=== PATIENT | male | born 1945 | race Two or more races ===

== ENCOUNTER 2018-01-04 11:07 | Inpatient (IN) | payer OTHER, MEDICAID ==
[~2018-01-04] VITALS: Ht 172.7 cm; Wt 75.5 kg
[~2018-01-04 11:07] MED LIST: ASPI-231 PO; ATOR10TA52 PO; CLOP75TA41 PO; Glipizide PO; HYDR25TA4 PO; LISI40TA PO; MET5XLT PO; METF-372 PO
[2018-01-04] MEDS ORDERED: ASPirin 81 mg TAB PO ONE (11:45)
[2018-01-04] MEDS ORDERED: NITROGLYCERIN 0.4 MG SL TAB SL ONE (11:45)
[2018-01-04 12:02] LABS: Basophils # (auto) 0 uL; Eosinophils # (auto) 0.1 uL; Eosinophils % (auto) 0.7 % (0.0-7.0); Hemoglobin 14.3 g/dL (13.5-17.5); Lymphocytes # (auto) 1.1 uL; Monocytes # (auto) 0.8 uL
[2018-01-04 12:06] LABS: Basophils % (auto) 0.4 % (0.0-2.0); Hematocrit 40.2 % (41.0-53.0); Lymphocytes % (auto) 14.6 % (10.0-50.0); Mean Corpuscular Hemoglobin 37.2 pg (28.0-32.0); Mean Corpuscular Hgb Conc. 35.5 g/dL (32.0-36.0); Mean Corpuscular Volume 104.6 fL (80.0-100.0); Monocytes % (auto) 9.8 % (0.0-12.0); Neutrophils # (auto) 5.7 uL; Neutrophils % (auto) 74.5 % (37.0-80.0); Platelet Count (auto) 204 10^3/uL (140-450); Red Blood Cells 3.84 10^6/uL (4.5-5.90); Red Cell Distribution Width 12.9 % (11.8-14.3); White Blood Cell 7.7 10^3/uL (4.4-10.8)
[2018-01-04 12:30] LABS: Albumin 3.8 g/dL (3.4-5.0); BUN/Creatinine Ratio 15.5; Calcium 8.4 mg/dL (8.5-10.1); Potassium 3.9 mmol/L (3.5-5.1)
[2018-01-04 12:35] LABS: Bilirubin, Total 0.6 mg/dL (0.2-1.0); Total Protein 7.9 g/dL (6.4-8.2)
[2018-01-04] MEDS ORDERED: IOHEXOL 350 MG/ML 100ML IJ ONE (13:20)
[2018-01-04] MEDS ORDERED: MORPHINE SULFATE 4 MG/ML SYR/VIAL IV PRN ×2 (16:30)
[2018-01-04] MEDS ORDERED: LORazepam 0.5 MG TAB PO PRN (16:30)
[2018-01-04] MEDS ORDERED: ACETAMINOPHEN 500 MG TAB PO PRN (16:30)
[2018-01-04] MEDS ORDERED: NITROGLYCERIN 0.4 MG SL TAB SL PRN (16:30)
[2018-01-04] MEDS ORDERED: SODIUM CHLORIDE 0.9% 2,000 ML IV ONE (16:30)
[2018-01-04] MEDS ORDERED: DEXTROSE (50%) 50ML SYRG IV PRN (16:30)
[2018-01-04] MEDS ORDERED: HEPARIN SODIUM (PORCINE) 5000 UNITS/ML 1ML VIAL IV ONE (16:30)
[2018-01-04] MEDS ORDERED: PROMETHAZINE HCL 25 MG/ML 1ML IV PRN (16:30)
[2018-01-04] MEDS ORDERED: TEMAZEPAM 15 MG CAP PO PRN (16:30)
[2018-01-04] MEDS ORDERED: SODIUM CHLORIDE 0.9% 1,000 ML IV ONE (16:45)
[2018-01-04] MEDS ORDERED: HEPARIN DRIP/D5W 100UNITS/ML 250 ML IV SCH (17:00)
[2018-01-04] MEDS: InsuLIN REG 1unit/0.01ml Soln (100units/ml) SC SCH ×2 (17:32→21:29)
[2018-01-04] MEDS: ACCU-CHEK COMFORT CURVE STRIP VI SCH ×2 (17:32→21:30)
[2018-01-04] MEDS: glipiZIDE 5 MG TAB PO SCH (17:32)
[2018-01-04 18:53] LABS: INR 1.07 (0.9-1.15)
[2018-01-04 19:18] LABS: Partial Thromboplastin Time > 170.00 sec (23.78-33.04)
[2018-01-04 20:00] VITALS: BP 144/77
[2018-01-04] MEDS: ATORVASTATIN 20 MG TAB PO SCH (21:29)
[2018-01-04] MEDS: LISINOPRIL 20 MG TAB PO SCH (21:29)
[2018-01-04 21:37] VITALS: BP 162/86
[2018-01-05 03:16] LABS: Basophils # (auto) 0.1 uL; Eosinophils # (auto) 0.2 uL; Eosinophils % (auto) 2.5 % (0.0-7.0); Hematocrit 39.4 % (41.0-53.0); Hemoglobin 13.6 g/dL (13.5-17.5); Mean Corpuscular Hgb Conc. 34.5 g/dL (32.0-36.0); Mean Corpuscular Volume 104.4 fL (80.0-100.0); Nucleated Red Blood Cells % 0.1 %; Red Blood Cells 3.77 10^6/uL (4.5-5.90)
[2018-01-05 03:17] LABS: Basophils % (auto) 0.8 % (0.0-2.0); Lymphocytes # (auto) 2.1 uL; Lymphocytes % (auto) 30.6 % (10.0-50.0); Monocytes % (auto) 14.2 % (0.0-12.0); Neutrophils # (auto) 3.6 uL; Neutrophils % (auto) 51.9 % (37.0-80.0); Platelet Count (auto) 202 10^3/uL (140-450); Red Cell Distribution Width 12.8 % (11.8-14.3); White Blood Cell 6.9 10^3/uL (4.4-10.8)
[2018-01-05 03:35] LABS: Partial Thromboplastin Time 38.5 sec (23.78-33.04); Prothrombin Time 10.7 sec (9.27-12.13)
[2018-01-05 05:17] VITALS: BP 134/77
[2018-01-05] MEDS: glipiZIDE 5 MG TAB PO SCH ×2 (06:11→18:00)
[2018-01-05] MEDS: ACCU-CHEK COMFORT CURVE STRIP VI SCH ×4 (06:11→21:48)
[2018-01-05] MEDS: InsuLIN REG 1unit/0.01ml Soln (100units/ml) SC SCH ×4 (06:11→21:48)
[2018-01-05 08:00] VITALS: BP 147/78
[2018-01-05] MEDS ORDERED: HEPARIN DRIP/D5W 100UNITS/ML 250 ML IV SCH ×2 (10:00→18:30)
[2018-01-05] MEDS: ASPirin-EC 81 mg tab PO SCH (10:29)
[2018-01-05] MEDS: PANTOPRAZOLE 40 MG TAB PO SCH (10:29)
[2018-01-05] MEDS: CLOPIDOGREL BISULFATE 75 MG TAB PO SCH (10:29)
[2018-01-05] MEDS: LISINOPRIL 20 MG TAB PO SCH ×2 (10:30→21:41)
[2018-01-05] MEDS: METOPROLOL SUCCINATE XL 50 MG TAB PO SCH (10:31)
[2018-01-05] MEDS: HCTZ 25 MG TAB PO SCH (10:31)
[2018-01-05 12:00] VITALS: BP 154/83
[2018-01-05] MEDS ORDERED: LIDOCAINE 2%HCL (LOCAL ANESTH.) INJ 10ml MDV ONE (13:17)
[2018-01-05] MEDS ORDERED: IODIXANOL 320MG/ML 100ML BTL IV ONE (13:17)
[2018-01-05] MEDS ORDERED: fentaNYL CITRATE 100 MCG/2 ML VL ONE (14:05)
[2018-01-05] MEDS ORDERED: MIDAZOLAM HCL 1MG/1ML-2 ML VIAL ONE (14:05)
[2018-01-05] MEDS ORDERED: ANGIOMAX 250 MG VIAL IV ONE (14:05)
[2018-01-05] MEDS ORDERED: SODIUM CHL 0.9% 0 ML ONE (14:05)
[2018-01-05] MEDS ORDERED: EPTIFIBATIDE INJ (2MG/ML) 10ML VIAL IV ONE (15:13)
[2018-01-05] MEDS ORDERED: TICAGRELOR 90 MG TAB ONE (15:28)
[2018-01-05 16:30] VITALS: BP 162/81
[2018-01-05 17:00] LABS: INR 1.01 (0.9-1.15); Prothrombin Time 10.8 sec (9.27-12.13)
[2018-01-05 17:08] LABS: Partial Thromboplastin Time 116.9 sec (23.78-33.04)
[2018-01-05 21:34] VITALS: BP 146/94
[2018-01-05] MEDS: ATORVASTATIN 20 MG TAB PO SCH (21:49)
[2018-01-06 02:35] LABS: Prothrombin Time 10.7 sec (9.27-12.13)
[2018-01-06] MEDS: HYDROcodone-ACET 5/325MG TAB PO PRN ×2 (04:50→11:13)
[2018-01-06 05:24] VITALS: BP 156/98
[2018-01-06 05:55] LABS: Eosinophils # (auto) 0.1 uL; Hemoglobin 14.2 g/dL (13.5-17.5)
[2018-01-06] MEDS: glipiZIDE 5 MG TAB PO SCH (05:59)
[2018-01-06 06:00] LABS: Basophils # (auto) 0.1 uL; Basophils % (auto) 0.7 % (0.0-2.0); Eosinophils % (auto) 1.4 % (0.0-7.0); Hematocrit 40.3 % (41.0-53.0); Lymphocytes # (auto) 1.3 uL; Lymphocytes % (auto) 14.6 % (10.0-50.0); Mean Corpuscular Hemoglobin 36.8 pg (28.0-32.0); Mean Corpuscular Hgb Conc. 35.2 g/dL (32.0-36.0); Mean Corpuscular Volume 104.4 fL (80.0-100.0); Monocytes # (auto) 1.1 uL; Monocytes % (auto) 12.7 % (0.0-12.0); Neutrophils # (auto) 6.3 uL; Neutrophils % (auto) 70.6 % (37.0-80.0); Platelet Count (auto) 200 10^3/uL (140-450); Red Blood Cells 3.86 10^6/uL (4.5-5.90); Red Cell Distribution Width 13.1 % (11.8-14.3); White Blood Cell 8.9 10^3/uL (4.4-10.8)
[2018-01-06] MEDS: InsuLIN REG 1unit/0.01ml Soln (100units/ml) SC SCH ×2 (06:39→11:20)
[2018-01-06] MEDS: ACCU-CHEK COMFORT CURVE STRIP VI SCH ×2 (06:39→11:21)
[2018-01-06 09:00] VITALS: BP 153/84
[2018-01-06 09:00] LABS: INR 0.99 (0.9-1.15); Partial Thromboplastin Time 27.1 sec (23.78-33.04); Prothrombin Time 10.6 sec (9.27-12.13)
[2018-01-06] MEDS ORDERED: CLOP75TA41 PO (09:40)
[2018-01-06] MEDS ORDERED: TICAGRELOR 90 MG TAB PO SCH (10:00)
[2018-01-06] MEDS: HCTZ 25 MG TAB PO SCH (10:38)
[2018-01-06] MEDS: PANTOPRAZOLE 40 MG TAB PO SCH (10:38)
[2018-01-06] MEDS: METOPROLOL SUCCINATE XL 50 MG TAB PO SCH (10:39)
[2018-01-06] MEDS: LISINOPRIL 20 MG TAB PO SCH (10:39)
[2018-01-06] MEDS: CLOPIDOGREL BISULFATE 75 MG TAB PO SCH (11:13)
[2018-01-06] MEDS: ASPirin-EC 81 mg tab PO SCH (11:13)
== END 2018-01-06 12:20 | disposition home or self-care (01) | DRG 271 ==
LOC: ER 11:09 → TELE 11:10 → TELE-WESTW 18:47
PROVIDERS: ADMIT Internal Medicine; ATTEND Internal Medicine
PROC: 047U3Z1 Dilation of Left Peroneal Artery using Drug-Coated Balloon, Percutaneous Approach (ICD-10-PCS; principal; 2018-01-05)
PROC: B41G1ZZ Fluoroscopy of Left Lower Extremity Arteries using Low Osmolar Contrast (ICD-10-PCS; 2018-01-05)
PROC: B41F1ZZ Fluoroscopy of Right Lower Extremity Arteries using Low Osmolar Contrast (ICD-10-PCS; 2018-01-05)
PROC: 04CU3ZZ Extirpation of Matter from Left Peroneal Artery, Percutaneous Approach (ICD-10-PCS; 2018-01-05)
DX: I70.213 Atherosclerosis of native arteries of extremities with intermittent claudication, bilateral legs (principal); E87.1 Hypo-osmolality and hyponatremia; I74.3 Embolism and thrombosis of arteries of the lower extremities; E11.51 Type 2 diabetes mellitus with diabetic peripheral angiopathy without gangrene; E11.65 Type 2 diabetes mellitus with hyperglycemia; E78.5 Hyperlipidemia, unspecified; I11.9 Hypertensive heart disease without heart failure; I25.10 Atherosclerotic heart disease of native coronary artery without angina pectoris; I70.0 Atherosclerosis of aorta; Z83.3 Family history of diabetes mellitus; Z95.1 Presence of aortocoronary bypass graft; Z79.82 Long term (current) use of aspirin; Z79.899 Other long term (current) drug therapy; Z86.73 Personal history of transient ischemic attack (TIA), and cerebral infarction without residual deficits; Z79.4 Long term (current) use of insulin
CPT/HCPCS: 36415; 37228; 71045; 75635; 75716; 80053; 82550; 82962; 83036; 83605; 83735; 84484; 85025; 85610; 85730; 93005; 94761; 96360; 96361; 99152; A6257; J2001; J2250; Q9967

== ENCOUNTER 2018-11-13 20:32 | Emergency (ER) | payer OTHER, MEDICAID ==
[~2018-11-13] VITALS: Ht 170.2 cm; Wt 73.9 kg
[2018-11-13 20:46] VITALS: BP 203/106
[2018-11-13] MEDS ORDERED: cloNIDine HCL 0.1 MG TAB ONE (20:50)
[2018-11-13] MEDS ORDERED: cloNIDine HCL 0.1 MG TAB PO ONE (21:00)
== END 2018-11-13 21:55 | disposition left against medical advice (07) ==
LOC: ER 20:34
DX: R03.0 Elevated blood-pressure reading, without diagnosis of hypertension (principal); R07.9 Chest pain, unspecified; Z53.21 Procedure and treatment not carried out due to patient leaving prior to being seen by health care provider
CPT/HCPCS: 93005

== ENCOUNTER 2018-11-27 23:57 | Emergency (ER) | payer OTHER, MEDICAID ==
[~2018-11-27] VITALS: Ht 170.2 cm; Wt 72.6 kg
[~2018-11-27 23:57] MED LIST changes: +ALEN1TAB32 PO; +CARV6.25 PO; +CLON0.1T PO; -Glipizide PO; -HYDR25TA4 PO; -LISI40TA PO; -MET5XLT PO; +PROP225C11 PO; +SITA100T7 PO; +TERA2CAP45 PO
[2018-11-28] MEDS ORDERED: NIFEdipine 10 MG CAP ONE (00:09)
[2018-11-28] MEDS ORDERED: NIFEdipine 10 MG CAP PO ONE (00:15)
[2018-11-28 00:34] LABS: Urine Bacteria NONE SEEN /hpf (None Seen); Urine Blood 1+ /uL (Negative); Urine Specific Gravity 1.004 (1.001-1.035); Urine WBC <1 /hpf (0 - 3)
[2018-11-28 04:05] VITALS: BP 183/98
== END 2018-11-28 06:02 | disposition home or self-care (01) ==
LOC: ER 11-28 00:02
DX: I10 Essential (primary) hypertension (principal); E11.22 Type 2 diabetes mellitus with diabetic chronic kidney disease; I12.9 Hypertensive chronic kidney disease with stage 1 through stage 4 chronic kidney disease, or unspecified chronic kidney disease; N18.9 Chronic kidney disease, unspecified; E78.5 Hyperlipidemia, unspecified; I25.2 Old myocardial infarction; Z95.1 Presence of aortocoronary bypass graft; Z79.82 Long term (current) use of aspirin; Z79.899 Other long term (current) drug therapy
CPT/HCPCS: 81001; 93005

== ENCOUNTER 2019-12-06 04:36 | Emergency (ER) | payer OTHER, MEDICAID ==
[~2019-12-06] VITALS: Ht 170.2 cm; Wt 72.6 kg
[2019-12-06 05:34] VITALS: BP 159/80
== END 2019-12-06 05:53 | disposition left against medical advice (07) ==
LOC: ER 04:36
DX: R51 Headache (principal); Z53.21 Procedure and treatment not carried out due to patient leaving prior to being seen by health care provider
CPT/HCPCS: 70450; J7030